=== PATIENT | male | born 1995 | race Caucasian/White ===

== ENCOUNTER 2022-05-06 09:50 | Emergency (ER) | payer OTHER ==
[~2022-05-06] VITALS: Ht 175.3 cm; Wt 68.0 kg
[2022-05-06] MEDS ORDERED: KETOROLAC 60MG/2ML VIAL IM ONE (10:30)
[2022-05-06] MEDS ORDERED: ONDANSETRON 4MG ODT PO ONE (10:30)
[2022-05-06] MEDS ORDERED: ONDA4TAB50 MT (10:50)
[2022-05-06 10:53] VITALS: BP 110/60
== END 2022-05-06 11:13 | disposition home or self-care (01) ==
LOC: ER 09:50
DX: U07.1 COVID-19 (principal); Z88.0 Allergy status to penicillin
CPT/HCPCS: 87426; 96372; 99283; C9803; J1885; Q0162

== ENCOUNTER 2022-06-27 21:12 | Emergency (ER) | payer MEDICAID, OTHER ==
[~2022-06-27] VITALS: Ht 175.3 cm; Wt 68.0 kg
[~2022-06-27 21:12] MED LIST: ONDA4TAB50 MT
[2022-06-27 21:25] VITALS: BP 99/66
[2022-06-27] MEDS ORDERED: BO1 TP (22:29)
== END 2022-06-27 22:30 | disposition home or self-care (01) ==
LOC: EDSEX 21:12 → ER 21:12
DX: S90.411A Abrasion, right great toe, initial encounter (principal); F41.9 Anxiety disorder, unspecified; Z88.0 Allergy status to penicillin; X58.XXXA Exposure to other specified factors, initial encounter; Y93.89 Activity, other specified; Y92.018 Other place in single-family (private) house as the place of occurrence of the external cause
CPT/HCPCS: 99281